=== PATIENT | male | born 1960 | race Caucasian/White ===

== ENCOUNTER 2020-04-12 08:42 | Outpatient (CLI) | payer MEDICARE, MEDICAID, SELFPAY ==
--- NOTE | ~2020-04-12 | MR_ITS ---
EXAMINATION: MR lumbar spine wo con DATE: 04/12/2020 09:43 INDICATION: Lumbar radiculopathy. TECHNIQUE: Magnetic resonance imaging (MRI) of the lumbar spine was performed without intravenous con trast. Sequences included sagittal T2-weighted FSE, sagittal T2-weighted FS FSE, sagittal T1-weighted FSE, and axial T2-weighted FSE. COMPARISON: Lumbar spine MRI 10/20/2016 FINDINGS: There is 3 mm retrolisthesis of L2 on L3. There are Schmorl's nodes at most levels. There i s mild chronic anterior wedging of T12 and L1 vertebral bodies. There is mildly decreased disc height at T12-L1 and L5-S1. The distal spinal cord signal intensity is normal. The conus medullaris is at L 1-L2. The following disc levels are specifically discussed: L1-L2: The disc does not extend beyond the endplate margin. There is mild bilateral facet joint osteo arthritis. There is no neural foraminal stenosis. There is no central canal stenosis. L2-L3: The disc is bulging. There is moderate bilateral facet joint osteoarthritis. There is mild deepika ateral neural foraminal stenosis. There is mild central canal stenosis. L3-L4: The disc is bulging. There is mild right and moderate left facet joint osteoarthritis. There i s mild bilateral neural foraminal stenosis. There is mild central canal stenosis. L4-L5: The disc is bulging. There is mild right and moderate left facet joint osteoarthritis. There i s mild bilateral neural foraminal stenosis. There is mild central canal stenosis. L5-S1: The disc is bulging and has an annular fissure. There is mild bilateral facet joint osteoarthr itis. There is mild bilateral neural foraminal stenosis. There is mild central canal stenosis. IMPRESSION: 1. Mild lumbar spondylosis, stable from 10/20/2016. Reviewed, dictated and finalized at location B.
== END 2020-04-12 08:43 | disposition home or self-care (01) ==
LOC: ANHIMG 08:54
PROVIDERS: PCP Internal Medicine Infectious Disease; Visit Provider Psychiatry & Neurology Neurology
DX: M47.26 Other spondylosis with radiculopathy, lumbar region (principal)
CPT/HCPCS: 72148

== ENCOUNTER 2021-10-07 06:40 | Outpatient (CLI) | payer MEDICARE, MEDICAID, SELFPAY ==
--- NOTE | ~2021-10-07 | MR_ITS ---
EXAMINATION: MR lumbar spine wo/w con EXAM DATE: 10/07/2021 08:02 INDICATION: M48.00 - Spinal stenosis, site unspecified . Right hip and leg pain, numbness and tinglin g. TECHNIQUE: Multi-sequential, multiplanar MR images of the lumbar spine were obtained without contrast . Sagittal T1, T2, T2 fat saturation images. Axial T2 weighted images. Axial T1 weighted sequence. Patient was then injected with 17 mL Multihance intravenous contrast and reimaged. Postcontrast axi al and sagittal T1-weighted fat saturation sequences were obtained. Comparison is made to prior exa mination from 04/12/2020. FINDINGS: There is moderate disc disease at T12-L1 and L5-S1, mild to moderate at L1-2 and L2-3. The conus medullaris terminates at the L1/2 level and has normal signal intensity and morphology. There are no suspicious marrow signal abnormalities. There is 2 to 3 mm retrolisthesis L2 on L3 and L4 on L 5. Paraspinal soft tissue is unremarkable. There are no areas of abnormal enhancement on the post con trast images. Level by level evaluation: T12-L1: There is a mild diffuse disc bulge. Facet arthropathy: Mild. Neural foraminal stenosis: No stenosis. Central canal stenosis: No stenosis. L1-L2: Disc does not extend beyond the endplate margin. Facet arthropathy: Mild. Neural foraminal stenosis: No stenosis. Central canal stenosis: No stenosis. L2-L3: There is a mild diffuse disc bulge. Facet arthropathy: Mild to moderate. Neural foraminal stenosis: Minimal left. Central canal stenosis: No stenosis. L3-L4: There is a mild diffuse disc bulge. Facet arthropathy: Mild to moderate. Neural foraminal stenosis: Minimal bilateral. Central canal stenosis: Mild. L4-L5: There is a mild to moderate diffuse disc bulge. Facet arthropathy: Mild to moderate. Neural foraminal stenosis: Mild bilateral. Central canal stenosis: Mild. L5-S1: There is a mild to moderate diffuse disc bulge. Facet arthropathy: Mild to moderate. Neural foraminal stenosis: Mild to moderate bilateral. Central canal stenosis: Mild. Compared to 04/12/2020 MRI examination, only minimal progression spondylosis detected. IMPRESSION: 1. Mild to moderate lumbar spondylosis as detailed above. Reviewed, dictated and finalized at location G. [employer]
[2021-10-07 07:26] LABS: Estimated Glomerular Filt Rate > 60
== END 2021-10-07 06:41 | disposition home or self-care (01) ==
PROVIDERS: PCP Nurse Practitioner Family; Visit Provider Psychiatry & Neurology Neurology
DX: M48.00 Spinal stenosis, site unspecified (principal); M47.816 Spondylosis without myelopathy or radiculopathy, lumbar region
CPT/HCPCS: 72158; A9577

== ENCOUNTER 2024-05-20 12:45 | Outpatient (CLI) | payer MEDICARE, MEDICAID, SELFPAY ==
--- NOTE | ~2024-05-20 | PE_ITS ---
EXAMINATION: PET skull to mid thigh DATE: 05/20/2024 15:33 INDICATION: Solitary nodule of lung. TECHNIQUE: Blood glucose level was 86 mg/dL. 10.480 mCi of 18-fluorodeoxyglucose (18-FDG) was adminis tered i.v. Low dose computed tomography (CT) images were acquired from the base of the brain to the p roximal thighs for attenuation correction and anatomic localization. Automated exposure control was e mployed. Dose-length product (DLP) was 949 mGy-cm. Positron emission tomography (PET) images were acq uired in the same distribution. COMPARISON: None FINDINGS: Head/neck: There is a 9 mm subcutaneous mass without increased activity in right face, likely a sebac eous cyst. There are no pathologically enlarged lymph nodes. Chest: Calcified left lung nodules and calcified left hilar and mediastinal lymph nodes are consisten t with old granulomatous disease. There are airspace and groundglass opacities in left lung upper lob e with maximum SUV of 3.9. There is moderate emphysema. No pleural effusion. The heart size is normal . There are coronary artery calcifications. No pericardial effusion. Abdomen/pelvis/proximal thighs: Calcifications in the liver and spleen are consistent with old edemat ous disease. The gallbladder, pancreas, adrenal glands, and kidneys are normal. There is calcified at herosclerosis of the aorta and many of the other arteries. There is diffuse bladder wall thickening, which may be secondary to chronic outlet obstruction from the mildly enlarged prostate. There are lik greg changes of transurethral resection of the prostate. There are no dilated loops of bowel. There ar e no pathologically enlarged lymph nodes. There is no free intraperitoneal fluid. There is no osseous malignancy. IMPRESSION: 1. Airspace and groundglass opacities in left lung upper lobe with increased activity. The distributi on of the abnormality suggests infection. Noncontrast low-dose chest CT is recommended in 3 months to exclude malignancy. Reviewed, dictated and finalized at location A. IMPRESSION: 1. Airspace and groundglass opacities in left lung upper lobe with increased ac tivity. The distribution of the abnormality suggests infection. Noncontrast low -dose chest CT is recommended in 3 months to exclude malignancy.
[2024-05-20 14:10] LABS: Glucose Point of Care 86 mg/dl (65-105)
== END 2024-05-20 12:46 | disposition home or self-care (01) ==
LOC: ANHIMG 12:51
PROVIDERS: PCP Nurse Practitioner Family
DX: R91.1 Solitary pulmonary nodule (principal); R91.8 Other nonspecific abnormal finding of lung field
CPT/HCPCS: 78815; A9552